=== PATIENT | male | born 1940 | race Caucasian/White ===

== ENCOUNTER → 2016-10-21 | Outpatient (REF) | payer MEDICARE, OTHER ==
[~2016-10-21] MED LIST: /PROM25SU; ACET65TA OR; ALLE25CA; ASPI81TA31 OR; ATEN25TA; ATEN25TA OR; CALC600T10; CALCIUM/VIT D PO; CHONDROITIN PO; CO Q; FOLI1TAB; FOSI10TA2; FOSI10TA2 OR; GLUCOSAMINE PO; MAGN500T2; PERC5TAB8 OR; PERC7.5T8; PERC7.5T8 OR; VYTO10TA5; [UNRECOGNIZED DRUG - OTHER]; [UNRECOGNIZED DRUG - OTHER] PO; [UNRECOGNIZED DRUG - REMARK] PO; saw palmetto; vitamin d
[2016-10-21 17:30] LABS: BASO # 0.1 K/mm3 (0.0-0.2); BASO % 1.1 % (0.0-1.0); EOS # 0.4 K/mm3 (0.0-0.50); EOS % 5.1 % (0.0-3.0); LARGE UNSTAINED CELL # 0.2 K/mm3 (0.0-0.4); LARGE UNSTAINED CELL % 3.2 % (0.0-4.0); LYMPH # 2.3 K/mm3 (1.5-4.5); LYMPH % 27.4 % (24.0-44.0); MEAN CORPUSCULAR HEMOGLOBIN 28.1 pg (27.0-33.0); MEAN CORPUSCULAR HGB CONC 30.8 g/dl (32.0-36.5); MONO # 0.6 K/mm3 (0.0-0.8); MONO % 7.9 % (0.0-5.0); NEUTROPHILS # 4.2 K/mm3 (1.8-7.7); NEUTROPHILS % 55.3 % (36.0-66.0); PLATELET COUNT, AUTOMATED 217 k/mm3 (150-450); RED CELL DISTRIBUTION WIDTH 14.8 % (11.5-14.5); WHITE BLOOD COUNT 7.5 K/mm3 (4.0-10.0)
[2016-10-21 17:39] LABS: ALBUMIN 3.5 GM/DL (3.2-5.2); ALBUMIN/GLOBULIN RATIO 1.03 (1.00-1.93); BILIRUBIN,DIRECT 0.1 MG/DL (0.0-0.2); BILIRUBIN,TOTAL 0.5 MG/DL (0.2-1.0); TOTAL PROTEIN 6.9 GM/DL (6.4-8.2)
== END ==
LOC: M LABDRAWC 16:17
PROVIDERS: ATTEND Internal Medicine Gastroenterology
DX: K51.90 Ulcerative colitis, unspecified, without complications (principal)

== ENCOUNTER → 2016-10-21 | Outpatient (REF) | payer MEDICARE, OTHER ==
[2016-10-21 17:42] LABS: ALBUMIN 3.5 GM/DL (3.2-5.2); ALBUMIN/GLOBULIN RATIO 1.06 (1.00-1.93); ALKALINE PHOSPHATASE 119 U/L (45-117); ALT/SGPT 26 U/L (12-78); ANION GAP 8 MEQ/L (8-16); AST/SGOT 22 U/L (15-37); BILIRUBIN,TOTAL 0.5 MG/DL (0.2-1.0); BLOOD UREA NITROGEN 23 MG/DL (7-18); CALCIUM LEVEL 8.9 MG/DL (8.8-10.2); CARBON DIOXIDE LEVEL 31 MEQ/L (21-32); CHLORIDE LEVEL 105 MEQ/L (98-107); CHOLESTEROL LEVEL 210 MG/DL (<200); CREATININE FOR GFR 1.15 MG/DL (0.70-1.30); GLOMERULAR FILTRATION RATE > 60.0 (>42); GLUCOSE, FASTING 78 MG/DL (83-110); POTASSIUM SERUM 4.7 MEQ/L (3.5-5.1); SODIUM LEVEL 144 MEQ/L (136-145); TOTAL PROTEIN 6.8 GM/DL (6.4-8.2); TRIGLYCERIDES LEVEL 136 MG/DL (<150)
== END ==
LOC: M LABDRAWC 16:18
PROVIDERS: ATTEND Physician Assistant
DX: I11.9 Hypertensive heart disease without heart failure (principal); I25.10 Atherosclerotic heart disease of native coronary artery without angina pectoris; E78.00 Pure hypercholesterolemia, unspecified; K51.90 Ulcerative colitis, unspecified, without complications

== ENCOUNTER → 2017-01-07 | Outpatient (REF) | payer MEDICARE, OTHER ==
[2017-01-07 12:57] LABS: BASO % 0.6 % (0.0-1.0); EOS # 0.4 K/mm3 (0.0-0.50); EOS % 6.6 % (0.0-3.0); LARGE UNSTAINED CELL # 0.2 K/mm3 (0.0-0.4); LARGE UNSTAINED CELL % 2.8 % (0.0-4.0); MEAN CORPUSCULAR HEMOGLOBIN 28.3 pg (27.0-33.0); MEAN CORPUSCULAR HGB CONC 31.7 g/dl (32.0-36.5); MEAN CORPUSCULAR VOLUME 89.2 fl (80.0-96.0); MONO # 0.4 K/mm3 (0.0-0.8); MONO % 6.6 % (0.0-5.0); NEUTROPHILS # 3.8 K/mm3 (1.8-7.7); NEUTROPHILS % 56.4 % (36.0-66.0); PLATELET COUNT, AUTOMATED 256 k/mm3 (150-450); RED CELL DISTRIBUTION WIDTH 13.6 % (11.5-14.5); WHITE BLOOD COUNT 6.7 K/mm3 (4.0-10.0)
[2017-01-07 13:17] LABS: ALBUMIN/GLOBULIN RATIO 0.91 (1.00-1.93); ALKALINE PHOSPHATASE 128 U/L (45-117); ALT/SGPT 31 U/L (12-78); AST/SGOT 23 U/L (15-37); BILIRUBIN,DIRECT < 0.1 MG/DL (0.0-0.2); BILIRUBIN,TOTAL 0.2 MG/DL (0.2-1.0); TOTAL PROTEIN 6.3 GM/DL (6.4-8.2)
== END ==
LOC: M LABDRAW1 11:34 → M LAB REF 11:34
PROVIDERS: ATTEND Internal Medicine Gastroenterology
DX: K51.90 Ulcerative colitis, unspecified, without complications (principal)

== ENCOUNTER → 2017-03-07 | Outpatient (REF) | payer MEDICARE, OTHER ==
[2017-03-07 18:13] LABS: ALBUMIN 3.6 GM/DL (3.2-5.2); ALBUMIN/GLOBULIN RATIO 1.13 (1.00-1.93); ALKALINE PHOSPHATASE 107 U/L (45-117); ALT/SGPT 26 U/L (12-78); AST/SGOT 25 U/L (15-37); BILIRUBIN,DIRECT < 0.1 MG/DL (0.0-0.2); BILIRUBIN,TOTAL 0.5 MG/DL (0.2-1.0); TOTAL PROTEIN 6.8 GM/DL (6.4-8.2)
[2017-03-07 19:05] LABS: BASO % 0.6 % (0.0-1.0); EOS # 0.3 K/mm3 (0.0-0.50); EOS % 5.4 % (0.0-3.0); LARGE UNSTAINED CELL # 0.2 K/mm3 (0.0-0.4); LARGE UNSTAINED CELL % 3.6 % (0.0-4.0); LYMPH # 1.5 K/mm3 (1.5-4.5); LYMPH % 25.4 % (24.0-44.0); MEAN CORPUSCULAR HEMOGLOBIN 29.1 pg (27.0-33.0); MEAN CORPUSCULAR HGB CONC 32.2 g/dl (32.0-36.5); MEAN CORPUSCULAR VOLUME 90.4 fl (80.0-96.0); MONO # 0.5 K/mm3 (0.0-0.8); MONO % 8.4 % (0.0-5.0); NEUTROPHILS # 3.3 K/mm3 (1.8-7.7); NEUTROPHILS % 56.5 % (36.0-66.0); PLATELET COUNT, AUTOMATED 211 k/mm3 (150-450); RED CELL DISTRIBUTION WIDTH 14.7 % (11.5-14.5); WHITE BLOOD COUNT 5.8 K/mm3 (4.0-10.0)
== END ==
LOC: M LABDRAWC 16:29
PROVIDERS: ATTEND Internal Medicine Gastroenterology
DX: K51.90 Ulcerative colitis, unspecified, without complications (principal)

== ENCOUNTER → 2017-08-12 | Outpatient (REF) | payer MEDICARE, OTHER ==
[2017-08-12 13:37] LABS: BASO % 0.5 % (0.0-1.0); EOS # 0.4 10^3/uL (0.0-0.50); EOS % 5.6 % (0.0-3.0); IMMATURE GRANULOCYTE % 0.2 % (0-0); LYMPH # 1.5 10^3/uL (1.5-4.5); LYMPH % 23.9 % (24.0-44.0); MEAN CORPUSCULAR HEMOGLOBIN 27.3 pg (27.0-33.0); MEAN CORPUSCULAR HGB CONC 31.3 g/dl (32.0-36.5); MEAN CORPUSCULAR VOLUME 87.4 fl (80.0-96.0); MONO # 0.8 10^3/uL (0.0-0.8); MONO % 12.7 % (0.0-5.0); NEUTROPHILS # 3.7 10^3/uL (1.8-7.7); NEUTROPHILS % 57.1 % (36.0-66.0); PLATELET COUNT, AUTOMATED 212 10^3/uL (150-450); RED CELL DISTRIBUTION WIDTH 15.7 % (11.5-14.5); WHITE BLOOD COUNT 6.4 10^3/uL (4.0-10.0)
[2017-08-12 13:52] LABS: ALBUMIN 3.2 GM/DL (3.2-5.2); ALBUMIN/GLOBULIN RATIO 1.03 (1.00-1.93); BILIRUBIN,DIRECT 0.1 MG/DL (0.0-0.2); BILIRUBIN,TOTAL 0.5 MG/DL (0.2-1.0); TOTAL PROTEIN 6.3 GM/DL (6.4-8.2)
== END ==
LOC: M LABDRAWC 12:41
PROVIDERS: ATTEND Internal Medicine Gastroenterology
DX: K51.90 Ulcerative colitis, unspecified, without complications (principal)

== ENCOUNTER → 2017-10-13 | Outpatient (REF) | payer MEDICARE, OTHER ==
[2017-10-13 12:37] LABS: BASO % 0.7 % (0.0-1.0); EOS # 0.4 10^3/uL (0.0-0.50); HEMATOCRIT 46.3 % (42.0-52.0); HEMOGLOBIN 14.7 g/dl (14.0-18.0); IMMATURE GRANULOCYTE % 0.2 % (0-0); LYMPH # 1.8 10^3/uL (1.5-4.5); LYMPH % 29.3 % (24.0-44.0); MEAN CORPUSCULAR HEMOGLOBIN 27.8 pg (27.0-33.0); MEAN CORPUSCULAR HGB CONC 31.7 g/dl (32.0-36.5); MEAN CORPUSCULAR VOLUME 87.5 fl (80.0-96.0); MONO # 0.8 10^3/uL (0.0-0.8); MONO % 13.2 % (0.0-5.0); NEUTROPHILS % 49.6 % (36.0-66.0); PLATELET COUNT, AUTOMATED 202 10^3/uL (150-450); RED BLOOD COUNT 5.29 10^6/uL (4.30-6.10); RED CELL DISTRIBUTION WIDTH 15.3 % (11.5-14.5)
[2017-10-13 14:14] LABS: ALBUMIN 3.4 GM/DL (3.2-5.2); ALKALINE PHOSPHATASE 109 U/L (45-117); ALT/SGPT 26 U/L (12-78); AST/SGOT 29 U/L (7-37); BILIRUBIN,DIRECT 0.1 MG/DL (0.0-0.2); BILIRUBIN,TOTAL 0.4 MG/DL (0.2-1.0); TOTAL PROTEIN 6.5 GM/DL (6.4-8.2)
== END ==
LOC: M LABDRAWC 11:31
DX: K51.90 Ulcerative colitis, unspecified, without complications (principal)
CPT/HCPCS: 80076

== ENCOUNTER → 2018-01-26 | Outpatient (REF) | payer MEDICARE, OTHER ==
[2018-01-27 11:59] LABS: BASO % 0.7 % (0.0-1.0); EOS # 0.3 10^3/uL (0.0-0.50); EOS % 4.2 % (0.0-3.0); HEMATOCRIT 43.2 % (42.0-52.0); HEMOGLOBIN 13.8 g/dl (13.5-17.5); IMMATURE GRANULOCYTE % 0.2 % (0-3.0); LYMPH # 1.5 10^3/uL (1.5-4.5); LYMPH % 25.3 % (24.0-44.0); MEAN CORPUSCULAR HEMOGLOBIN 28.1 pg (27.0-33.0); MEAN CORPUSCULAR HGB CONC 31.9 g/dl (32.0-36.5); MONO # 0.7 10^3/uL (0.0-0.8); MONO % 12.3 % (0.0-5.0); NEUTROPHILS # 3.4 10^3/uL (1.8-7.7); NEUTROPHILS % 57.3 % (36.0-66.0); PLATELET COUNT, AUTOMATED 189 10^3/uL (150-450); RED BLOOD COUNT 4.91 10^6/uL (4.30-6.10); RED CELL DISTRIBUTION WIDTH 15.3 % (11.5-14.5); WHITE BLOOD COUNT 5.9 10^3/uL (4.0-10.0)
[2018-01-27 12:27] LABS: ALBUMIN 3.3 GM/DL (3.2-5.2); ALBUMIN/GLOBULIN RATIO 1.06 (1.00-1.93); ALKALINE PHOSPHATASE 94 U/L (45-117); ALT/SGPT 27 U/L (12-78); AST/SGOT 26 U/L (7-37); BILIRUBIN,DIRECT < 0.1 MG/DL (0.0-0.2); BILIRUBIN,TOTAL 0.3 MG/DL (0.2-1.0); TOTAL PROTEIN 6.4 GM/DL (6.4-8.2)
== END ==
LOC: M LABDRAWC 11:29
DX: K51.90 Ulcerative colitis, unspecified, without complications (principal)
CPT/HCPCS: 80076

== ENCOUNTER → 2018-06-27 | Outpatient (REF) | payer MEDICARE, OTHER ==
[2018-06-27 19:08] LABS: HEMATOCRIT 47.2 % (42.0-52.0); HEMOGLOBIN 14.7 g/dl (13.5-17.5); MEAN CORPUSCULAR HEMOGLOBIN 28.1 pg (27.0-33.0); MEAN CORPUSCULAR HGB CONC 31.1 g/dl (32.0-36.5); MEAN CORPUSCULAR VOLUME 90.1 fl (80.0-96.0); PLATELET COUNT, AUTOMATED 189 10^3/uL (150-450); RED BLOOD COUNT 5.24 10^6/uL (4.30-6.10); RED CELL DISTRIBUTION WIDTH 14.7 % (11.5-14.5); WHITE BLOOD COUNT 5.8 10^3/uL (4.0-10.0)
[2018-06-27 19:33] LABS: ALBUMIN 3.6 GM/DL (3.2-5.2); ALBUMIN/GLOBULIN RATIO 1.13 (1.00-1.93); ALKALINE PHOSPHATASE 104 U/L (45-117); ALT/SGPT 30 U/L (12-78); ANION GAP 7 MEQ/L (8-16); AST/SGOT 29 U/L (7-37); BILIRUBIN,TOTAL 0.5 MG/DL (0.2-1.0); BLOOD UREA NITROGEN 20 MG/DL (7-18); CALCIUM LEVEL 8.9 MG/DL (8.8-10.2); CARBON DIOXIDE LEVEL 30 MEQ/L (21-32); CHLORIDE LEVEL 107 MEQ/L (98-107); CHOLESTEROL LEVEL 188 MG/DL (<200); CHOLESTEROL RISK RATIO 3.547 (<5); CREATININE FOR GFR 0.86 MG/DL (0.70-1.30); GLOMERULAR FILTRATION RATE > 60.0 (>35); GLUCOSE, FASTING 85 MG/DL (70-100); HDL CHOLESTEROL 53 MG/DL (>40); LDL CHOLESTEROL 106 MG/DL (<100); NON-HDL-C 135 MG/DL; POTASSIUM SERUM 4.8 MEQ/L (3.5-5.1); SODIUM LEVEL 144 MEQ/L (136-145); TOTAL PROTEIN 6.8 GM/DL (6.4-8.2); TRIGLYCERIDES LEVEL 143 MG/DL (<150)
== END ==
LOC: M LABDRAWC 18:03
DX: I25.10 Atherosclerotic heart disease of native coronary artery without angina pectoris (principal); I11.9 Hypertensive heart disease without heart failure; E78.00 Pure hypercholesterolemia, unspecified
CPT/HCPCS: 80053

== ENCOUNTER 2019-03-25 13:05 | Observation (INO) | payer MEDICARE, OTHER ==
[~2019-03-25] VITALS: Ht 167.6 cm; Wt 72.5 kg
[2019-03-25] MEDS ORDERED: AZAT50TA2 PO (13:40)
[2019-03-25] MEDS ORDERED: LISI-1046 PO (13:40)
[2019-03-25] MEDS ORDERED: SIMV40TA2 PO (13:40)
--- NOTE | 2019-03-25 13:54 | REP ---
CT of the brain without IV contrast: There are no comparisons. There is no hemorrhage, edema, mass effect or midline shift. Ventricles and sulci are mildly dilated compatible with diffuse volume loss. There are lucencies in the subcortical/periventricular white matter compatible with chronic microvascular ischemia. The visualized paranasal sinuses and mastoid air cells are clear. Impression: There is no hemorrhage, acute infarct or mass. There are findings compatible with chronic microvascular ischemia and diffuse volume loss. Electronically Signed by Giovany Hill MD 03/25/2019 01:46 P
[2019-03-25 13:58] LABS: BASO % 0.7 % (0.0-1.0); EOS # 0.4 10^3/uL (0.0-0.50); EOS % 7.2 % (0.0-3.0); HEMATOCRIT 41.7 % (42.0-52.0); HEMOGLOBIN 13.2 g/dl (13.5-17.5); LYMPH # 1.4 10^3/uL (1.5-4.5); LYMPH % 25.3 % (24.0-44.0); MEAN CORPUSCULAR HGB CONC 31.7 g/dl (32.0-36.5); MEAN CORPUSCULAR VOLUME 88.3 fl (80.0-96.0); MONO # 0.8 10^3/uL (0.0-0.8); MONO % 13.4 % (0.0-5.0); NEUTROPHILS % 53.2 % (36.0-66.0); PLATELET COUNT, AUTOMATED 205 10^3/uL (150-450); RED BLOOD COUNT 4.72 10^6/uL (4.30-6.10); WHITE BLOOD COUNT 5.7 10^3/uL (4.0-10.0)
[2019-03-25 14:07] LABS: INR 1.03; PROTHROMBIN TIME 13.2 SECONDS (11.8-14.0)
[2019-03-25 14:08] LABS: PARTIAL THROMBOPLASTIN TIME 27.5 SECONDS (25.0-38.4)
--- NOTE | 2019-03-25 14:26 | REP ---
Portable chest, 01:43 p.m., single AP view with the patient sitting: Comparison is 07/20/2010. The lung honeycutt are clear. The cardiac size is upper normal. There are sternotomy wires and mediastinal surgical clips, unchanged. There is an endovascular stent superimposed over the cardiac silhouette on the right, unchanged. The petr and mediastinum are unremarkable. There are bilateral shoulder arthroplasties. Impression: There are no acute cardiopulmonary findings. Electronically Signed by Giovany Hill MD 03/25/2019 02:18 P
[2019-03-25 14:34] LABS: ALBUMIN 2.9 GM/DL (3.2-5.2); ALT/SGPT 26 U/L (12-78); BILIRUBIN,DIRECT 0.1 MG/DL (0.0-0.2); BILIRUBIN,TOTAL 0.3 MG/DL (0.2-1.0); BLOOD UREA NITROGEN 15 MG/DL (7-18); C REACTIVE PROTEIN QUANTITATIV 0.53 MG/DL (0.00-0.30); CALCIUM LEVEL 8.6 MG/DL (8.8-10.2); CARBON DIOXIDE LEVEL 29 MEQ/L (21-32); CHLORIDE LEVEL 109 MEQ/L (98-107); CK-MB VALUE MASS 3.8 NG/ML (<3.6); CPK CREATINE PHOSPHOKINASE 82 U/L (39-308); CREATININE FOR GFR 0.87 MG/DL (0.70-1.30); GLOMERULAR FILTRATION RATE > 60.0 (>35); GLUCOSE, FASTING 88 MG/DL (70-100); MB/CK RELATIVE INDEX 4.63 (< OR =4); NT-PRO BNP 610 PG/ML (<450); POTASSIUM SERUM 4.6 MEQ/L (3.5-5.1); SODIUM LEVEL 142 MEQ/L (136-145); TOTAL PROTEIN 6.2 GM/DL (6.4-8.2); TROPONIN I 0.02 NG/ML (< 0.10)
[2019-03-25] MEDS ORDERED: ASPIRIN 325 MG TAB PO ONE (15:15)
[2019-03-25] MEDS ORDERED: ZOCO80TA PO (15:32)
[2019-03-25] MEDS ORDERED: ATEN25TA PO (15:32)
[2019-03-25] MEDS ORDERED: BRONCHW PO (15:32)
[2019-03-25] MEDS ORDERED: VOLT1GEL15 TOP (15:32)
[2019-03-25] MEDS ORDERED: RESV1TAB PO (15:32)
[2019-03-25] MEDS ORDERED: FERR1TAB8 PO (15:32)
[2019-03-25] MEDS ORDERED: ENOXAPARIN 40 MG/0.4 ML SYRINGE (J1650) SC ONE (17:00)
--- NOTE | 2019-03-25 18:46 | HPEPDOC ---
General Date of Admission Mar 25, 2019 at 16:43 Date of Service: Mar 25, 2019 Chief Complaint The patient is a 78-year-old male admitted with a reason for visit of Bradycardia Tia. Source: Patient, Family Exam Limitations: No limitations Timing/Duration: Changing over time, This morning Associated Symptoms: Denies Symptoms History of Present Illness This is an 78-year-old male who had onset of neurologic changes. They started this morning. Initially, note was made of a change to his voice. His did n otice that he was stumbling and had slurred speech. He then slept for an extended period of about 14 hours. This was highly unusual for him and so she called paramedics to the home. She states the paramedics noted facial droop, but she did not. Upon arrival to the emergency room. Most symptoms had resolved. Of particular interest, the patient had a fall 5 weeks ago sustained a concussion. He had waxing and waning confusion, dizziness, balance issues and difficulty keeping track of time. He's not had any fever or headache. Home Medications Scheduled Atenolol (Atenolol) 25 Mg Tablet, 12.5 MG PO QHS, (Reported) Azathioprine (Azathioprine) 50 Mg Tablet, 50 MG PO QHS, (Reported) Ferrous Sulfate (Ferrous Sulfate) 325 Mg Tablet, 325 MG PO DAILY, (Reported) Lisinopril (Lisinopril) 2.5 Mg Tablet, 2.5 MG PO QHS, (Reported) Multivitamin (Chewable-Nelida) 1 Each Tab.chew, 1 CHW PO DAILY, (Reported) Resveratrol/Grape Skin Extract (Resveratrol 100 mg Tablet) 1 Each Tablet, 1 TAB PO DAILY, (Reported) Simvastatin (Zocor) 80 Mg Tablet, 40 MG PO QHS, (Reported) Scheduled PRN Diclofenac Sodium (Voltaren) 100 Gm Gel..gram., 1 APLCT TOP for SHOULDER PAIN, (Reported) Allergies Coded Allergies: morphine (Verified Adverse Reaction, Unknown, confused, 03/25/19) Past Medical History Medical History Past medical history is remarkable for hypertension, hypercholesterolemia, ulcerative colitis that has been stable for some time, coronary artery disease with coronary artery bypass graft in 1996, macular degeneration, osteoarthritis Surgical History Surgical history includes the aforementioned coronary artery bypass graft surgery with 4 vessels in 1996, bilateral shoulder replacement, bunion surgery Family History Significant Family History: Heart disease, Hyperlipidemia Social History * Smoker: non-smoker, secondhand, other Alcohol: rarely Drugs: denies Recent Travel/Sick Contacts: Denies: Recent travel, Recent sick contacts Psychosocial History: No pertinent psych hx The patient is retired. 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 We have discussed his CODE STATUS. He has a MOLST form at home. His is his medical power of collections attorney. He is to be DNR/DNI. He receives most of his medical care [facility]. A-FIB/CHADSVASC A-FIB History Current/History of A-Fib/PAF?: No Current PO Anticoag Therapy: No Review of Systems Constitutional: Denies: Chills, Fever, Malaise, Night Sweats, Weakness, Fatigue, Weight Loss, Lethargy, Other Eyes: Reports: Redness; Denies: Pain, Vision change, Conjunctivae inflammation, Eyelid inflammation, Other ENT: Denies: Head Aches, Ear Pain, Dysphagia, Sinus Congestion, Post Nasal Drip, Sore Throat, Epistaxis, Other Symptoms Skin: Denies: Rash, Lesions, Jaundice, Bruising, Itching, Dry, Breakdown, Nail Changes, Other Pulmonary: Denies: Dyspnea, Cough, Pleuritic Chest Pain, Other Symptoms Cardiovascular: Denies: Chest Pain, Palpitations, Orthopnea, Paroxysmal Noc. Dyspnea, Edema, Lt Headedness, Other Symptoms Gastrointestinal: Denies: Nausea, Vomiting, Abdominal Pain, Diarrhea, Constip ation, Melena, Hematochezia, Other Symptoms Genitourinary: Reports: Other Symptoms (patient reports complaint of urinary urgency) Hematologic: Denies: Bruising, Bleeding Excessively, Petecchia, Purpura, Enlarged Lymph Nodes, Other Hematologic Endocrine: Denies: Polydipsia, Polyphagia, Polyuria, Heat Intolerance, Cold Intolerance, Other Endocrine Sx Musculoskeletal: Reports: Neck Pain Neurological: Reports: Change in speech, Other Symptoms (he otherwise denies any muscular weakness); Denies: Weakness, Numbness, Incoordination, Confusion, Seizures Psych: Reports: Mood Normal; Denies: Anxiety, Depression, Memory Issues, Thoughts of Self Harm, Anger, Thoughts of Harming Other, Other Psych Other systems Review of 10 systems is otherwise negative except as stated in the brief presentation Physical Examination General Exam: Positive: Alert, Cooperative, No Acute Distress Eye Exam: Positive: PERRLA, Other Eye Symptoms (remarkable left scleral injection) ENT Exam: Positive: Atraumatic, Mucous membr. moist/pink, Pharynx Normal, Tongue Midline, Nares Patent Neck Exam: Positive: Supple Chest Exam: Positive: Clear to auscultation, Normal air movement Heart Exam: Positive: Bradycardic (heart rate is 50), Regular Rhythm, Normal S1, Normal S2 Abdomen Exam: Positive: Normal bowel sounds, Soft; Negative: BS Hyperactive, BS Hypoactive, Tenderness, Hepatospenomegaly, Mass, Hernia, Other Extremity Exam: Positive: Normal pulses; Negative: Clubbing, Cyanosis, Edema, Tenderness, Swelling, Other Skin Exam: Positive: Nl turgor and temperature; Negative: Rash, Breakdown, Lesion, Pruritus, Other skin issue Neuro Exam: Positive: Normal Speech, Strength at 5/5 X4 ext, Normal Tone, Sensation Intact, Cranial Nerves 3-12 NL, Reflexes 2+ Psych Exam: Positive: Mood NL, Oriented x 3 Vital Signs Vital Signs Date Time Temp Pulse Resp B/P (MAP) Pulse Ox O2 Delivery O2 Flow Rate FiO2 03/25/19 17:31 54 156/79 (104) 03/25/19 17:01 20 99 Room Air 03/25/19 13:23 97.1 Laboratory Data Labs 24H Laboratory Tests 2 03/25/19 13:46: Immature Granulocyte % (Auto) 0.2, White Blood Count 5.7, Red Blood Count 4.72, Hemoglobin 13.2L, Hematocrit 41.7L, Mean Corpuscular Volume 88.3, Mean Corpuscular Hemoglobin 28.0, Mean Corpuscular Hemoglobin Concent 31.7L, Red Cell Distribution Width 14.6H, Platelet Count 205, Neutrophils (%) (Auto) 53.2, Lymphocytes (%) (Auto) 25.3, Monocytes (%) (Auto) 13.4H, Eosinophils (%) (Auto) 7.2H, Basophils (%) (Auto) 0.7, Neutrophils # (Auto) 3.0, Lymphocytes # (Auto) 1.4L, Monocytes # (Auto) 0.8, Eosinophils # (Auto) 0.4, Basophils # (Auto) 0.0, Nucleated Red Blood Cells % (auto) 0.0, Prothrombin Time 13.2, Prothromb Time International Ratio 1.03, Activated Partial Thromboplast Time 27.5, Anion Gap 4L, Glomerular Filtration Rate > 60.0, Calcium Level 8.6L, Aspartate Amino Transf (AST/SGOT) 25, Alanine Aminotransferase (ALT/SGPT) 26, Alkaline Phosphatase 137H, Total Bilirubin 0.3, Direct Bilirubin 0.1, Total Creatine Kinase 82, Creatine Kinase MB 3.8H, Creatine Kinase MB Relative Index 4.63H, Troponin I 0.02, C-Reactive Protein, Quantitative 0.53H, JJ-Vxw-C-Type Natriuretic Peptide 610H, Total Protein 6.2L, Albumin 2.9L, Albumin/Globulin Ratio 0.88L CBC/BMP Laboratory Tests 03/25/19 13:46 Red Blood Count 4.72, Mean Corpuscular Volume 88.3, Mean Corpuscular Hemoglobin 28.0, Mean Corpuscular Hemoglobin Concent 31.7 L, Red Cell Distribution Width 14.6 H, Neutrophils (%) (Auto) 53.2, Lymphocytes (%) (Auto) 25.3, Monocytes (%) (Auto) 13.4 H, Eosinophils (%) (Auto) 7.2 H, Basophils (%) (Auto) 0.7, Neutr ophils # (Auto) 3.0, Lymphocytes # (Auto) 1.4 L, Monocytes # (Auto) 0.8, Eosinophils # (Auto) 0.4, Basophils # (Auto) 0.0 Problems (1) TIA (transient ischemic attack) Status: Acute Discussed With: Patient, Health Care Proxy Problem Specific Plan: Monitor Clinically, Repeat Labs (we will obtain echoc ardiogram and carotid Dopplers. The patient will also be assessed by occupational and physical therapy and speech services.) (2) Bradycardia Status: Acute Response to Treatment: Stable Problem Specific Plan: Monitor Clinically Plan / VTE VTE Prophylaxis Ordered?: Yes (the patient is appropriate for Lovenox) Plan Diet: Continue Current Activity: Continue Current Therapy: PT, OT, Speech Medications: Other Med: (aspirin and statin to be added to his regimen; atenolo l held due to bradycardia, hydralazine added for blood pressure control) Diagnostics: Ultrasound (carotid Dopplers), TTE Advanced Directives: Do Not Resuscitate (DNR), Do Not Intubate (DNI) (patient has MOLST form at home) JACQUIE MELISSA MD Mar 25, 2019 18:46
[2019-03-25] MEDS: DICLOFENAC EPOLAMINE 1.3 % PATCH TOP SCH (20:11)
[2019-03-25 20:40] VITALS: BP 162/80
[2019-03-25] MEDS ORDERED: LISINOPRIL *2.5 MG* TAB PO SCH (21:00)
[2019-03-25] MEDS ORDERED: SIMVASTATIN 40 MG TAB PO SCH (21:00)
[2019-03-25] MEDS: **hydrALAZINE HCL** 25 MG TAB PO SCH (21:40)
[2019-03-25 23:59] VITALS: BP 146/60
--- NOTE | 2019-03-26 00:44 | REPVR ---
EXAM: US Duplex Bilateral Extracranial Arteries EXAM DATE/TIME: 03/25/2019 11:13 PM CLINICAL HISTORY: 78 years old, male; Altered mental status/memory loss; Other: TIA TECHNIQUE: Imaging protocol: Real-time Duplex ultrasound scan of the Bilateral carotid and vertebral arteries combining foster scale, color Doppler and spectral waveform analysis. COMPARISON: No relevant prior studies available. FINDINGS: Right common carotid artery: Peak systolic velocity in the right CCA is 79 cm/s. Normal waveforms. Mild echogenic plaque in the distal right CCA. Right internal carotid artery: Peak systolic velocity in the right ICA is 86 cm/s. Mild echogenic plaque in the right ICA bulb. Normal waveforms. Right ICA/CCA ratio: Right ICA/CCA ratio is 1.1. Right external carotid artery: No stenosis in the origin. Right vertebral artery: Unremarkable. Antegrade flow Left common carotid artery: Peak systolic velocity in the left CCA is 96 cm/s. Moderate echogenic plaque in the distal left CCA. Normal waveforms. Left internal carotid artery: Peak systolic velocity in the left ICA is 99 cm/s. Normal waveforms. Moderate echogenic plaque in the proximal left ICA. Left ICA/CCA ratio: Left ICA/CCA ratio is 1.0. Left external carotid artery: No stenosis in the origin. Mild echogenic plaque in the proximal left ECA. Left vertebral artery: Unremarkable. Antegrade flow. Other findings: There is occasional sinus arrhythmia. IMPRESSION: 1. Less than 50% stenosis in the left CCA and proximal left ICA. 2. No stenosis in the right CCA and ICA. COMMENT: Carotid Stenosis Reference using SRU criteria: Mild: less than 50% stenosis. ICA PSV is less than 125 cm/second and plaque or intimal thickening is visible. Moderate: 50-69% stenosis. ICA PSV is 125 to 230 cm/second and plaque is visible. Severe: 70-94% stenosis. ICA PSV is more than 230 cm/second and visible plaque and lumen narrowing are seen. Near occlusion: 95-99% stenosis. ICA PSV is variable and significant plaque and luminal narrowing are seen. Occluded: 100% stenosis. No flow identified. Electronically signed by: Jessica Griffin On 03/26/2019 00:44:06 AM
[2019-03-26 04:00] VITALS: BP 130/68
[2019-03-26 05:45] LABS: HEMOGLOBIN 12.5 g/dl (13.5-17.5); MEAN CORPUSCULAR HEMOGLOBIN 27.7 pg (27.0-33.0); MEAN CORPUSCULAR HGB CONC 32.1 g/dl (32.0-36.5); MEAN CORPUSCULAR VOLUME 86.3 fl (80.0-96.0); PLATELET COUNT, AUTOMATED 187 10^3/uL (150-450); RED BLOOD COUNT 4.52 10^6/uL (4.30-6.10)
[2019-03-26 06:17] LABS: BLOOD UREA NITROGEN 17 MG/DL (7-18); CALCIUM LEVEL 8.2 MG/DL (8.8-10.2); CARBON DIOXIDE LEVEL 27 MEQ/L (21-32); CHLORIDE LEVEL 109 MEQ/L (98-107); CHOLESTEROL LEVEL 149 MG/DL (< 200); GLOMERULAR FILTRATION RATE > 60.0 (>35); GLUCOSE, FASTING 82 MG/DL (70-100); SODIUM LEVEL 142 MEQ/L (136-145); TROPONIN I 0.03 NG/ML (< 0.10)
--- NOTE | 2019-03-26 06:56 | ECGEPIP ---
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
[2019-03-26 08:00] VITALS: BP 136/63
[2019-03-26] MEDS: **hydrALAZINE HCL** 25 MG TAB PO SCH ×2 (08:44→16:32)
[2019-03-26] MEDS: DICLOFENAC EPOLAMINE 1.3 % PATCH TOP SCH (08:44)
[2019-03-26] MEDS ORDERED: FERROUS SULFATE 325MG TAB PO SCH (09:00)
[2019-03-26] MEDS ORDERED: SLF 3 ML SYR IV PRN (11:00)
[2019-03-26 12:00] VITALS: BP 132/67
[2019-03-26] MEDS ORDERED: SLF 3 ML SYR IV SCH (14:00)
[2019-03-26] MEDS ORDERED: HYDR25TA PO (15:56)
[2019-03-26] MEDS ORDERED: ECOT81TA5 PO (15:59)
[2019-03-26 16:32] VITALS: BP 132/68
--- NOTE | 2019-03-26 18:04 | DS.PDOC ---
Discharge Summary General Date of Admission Mar 25, 2019 at 16:43 Date of Discharge 03/26/2019 Discharge Summary PROCEDURES PERFORMED DURING STAY: Echocardiogram, report pending. ADMITTING DIAGNOSES: 1. TIA. DISCHARGE DIAGNOSES: 1. TIA, essential hypertension, dyslipidemia, coronary artery disease, macular degeneration, osteoarthritis, ulcerative colitis-essentially in remission. COMPLICATIONS/CHIEF COMPLAINT: Bradycardia Tia. HISTORY OF PRESENT ILLNESS/HOSPITAL COURSE: This is a 78-year-old male who had onset of neurologic changes. The morning of admission. Note was initially made of a change to his voice quality. He then developed slurred speech and stumbling. Lastly, he had a period of extended somnolence for about 14 hours. Paramedics were called to the home who noted facial droop. Patient was then brought to the emergency room. By the time he arrived all of his symptoms had resolved. The patient was admitted to telemetry. Patient was also noted to have bradycardia upon admission. As he was known to be on atenolol this was held. Bradycardia was not captured on EKG. At lowest rate. He was 37 while sleeping. He otherwise remained stable at 65. The patient did not have any elevated troponins consistent with an acute cardiac event. He did not have any chest pain or shortness of breath. Chest x-ray was unremarkable. Head CT did not show any focal areas of infarct, although note was made of considerable atrophy. Carotid Dopplers were unremarkable for stenosis. The patient was evaluated by physical, occupational and speech therapy services. He did not have any deficits and did not require any services. 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 DISCHARGE MEDICATIONS: Please see below. ALLERGIES: Please see below. PHYSICAL EXAMINATION ON DISCHARGE: VITAL SIGNS: Please see below. ENT: Moist mucous membranes, tongue midline, poor dentition, neck supple. Respiratory: Clear to auscultation, normal air movement. Cardiovascular: Regular rhythm, no appreciable murmur. Abdomen: Soft, nondistended, nontender, normal bowel sounds, no central obesity. Extremities: No peripheral edema, pedal pulses palpable. Neuro: Cranial nerves II through XII are grossly intact to function, strength was normal throughout, patient had no focal neuromotor or sensory deficits, he was independently ambulatory LABORATORY DATA: Please see below. IMAGING: PROGNOSIS: ACTIVITY: As tolerated. DIET: Heart healthy DISCHARGE PLAN: The patient was stable for discharge to home. He has a scheduled follow-up appointment with his cardiology group, Dr. Dover et al., We have discontinued his atenolol for now. His other home medications are unchanged. We have added aspirin to his regimen; he is already on a statin. DISPOSITION: DISCHARGE CONDITION: Stable. TIME SPENT ON DISCHARGE: Greater than 35 minutes. Vital Signs/I&Os Vital Signs Date Time Temp Pulse Resp B/P (MAP) Pulse Ox O2 Delivery O2 Flow Rate FiO2 03/26/19 16:32 132/68 03/26/19 12:00 96.9 64 18 96 03/25/19 19:30 Room Air I&O- Last 24 Hours up to 6 AM 03/26/19 06:00 Intake Total 0 ml Output Total 725 ml Balance -725 ml Laboratory Data Labs 24H Laboratory Tests 2 03/26/19 05:21: Nucleated Red Blood Cells % (auto) 0.0, Anion Gap 6L, Glomerular Filtration Rate > 60.0, Blood Urea Nitrogen 17, Creatinine 0.90, Sodium Level 142, Potassium Level 4.0, Chloride Level 109H, Carbon Dioxide Level 27, Calcium Level 8.2L, Troponin I 0.03#, Cholesterol Level 149 CBC/BMP Laboratory Tests 03/26/19 05:21 Red Blood Count 4.52, Mean Corpuscular Volume 86.3, Mean Corpuscular Hemoglobin 27.7, Mean Corpuscular Hemoglobin Concent 32.1, Red Cell Distribution Width 14.4, Calcium Level 8.2 L Discharge Medications Scheduled Aspirin (Ecotrin) 81 Mg Tablet.dr, 81 MG PO DAILY for pain Azathioprine (Azathioprine) 50 Mg Tablet, 50 MG PO QHS, (Reported) Ferrous Sulfate (Ferrous Sulfate) 325 Mg Tablet, 325 MG PO DAILY, (Reported) Hydralazine HCl (Hydralazine HCl) 25 Mg Tablet, 25 MG PO TID Lisinopril (Lisinopril) 2.5 Mg Tablet, 2.5 MG PO QHS, (Reported) Multivitamin (Chewable-Nelida) 1 Each Tab.chew, 1 CHW PO DAILY, (Reported) Resveratrol/Grape Skin Extract (Resveratrol 100 mg Tablet) 1 Each Tablet, 1 TAB PO DAILY, (Reported) Simvastatin (Zocor) 80 Mg Tablet, 40 MG PO QHS, (Reported) Scheduled PRN Diclofenac Sodium (Voltaren) 100 Gm Gel..gram., 1 APLCT TOP for SHOULDER PAIN, (Reported) Allergies Coded Allergies: morphine (Verified Adverse Reaction, Unknown, confused, 03/25/19) JACQUIE MELISSA MD Mar 26, 2019 18:04
--- NOTE | 2019-03-26 20:59 | ECHO ---
DATE OF PROCEDURE: 03/26/2019 REFERRING PHYSICIAN: Dr. Donna Mike INDICATION: Transient cerebral ischemia unspecified. HEIGHT: 168 cm WEIGHT: 73 kg 2D MEASUREMENTS: Aortic root: 4.0 cm Left atrium: 4.2 cm Left atrial volume index: 28 Left ventricle diastole: 5.4 cm Ventricular septum: 1.15 cm Posterior wall: 0.96 cm DOPPLER MEASUREMENTS: Mild aortic regurgitation. No aortic stenosis. Aortic valve velocity: 90.2 cm/s Aortic valve VTI: 20.9 cm Mild mitral regurgitation. Mitral E velocity: 37.0 cm/s Mitral A velocity: 80.0 cm/s Very mild tricuspid regurgitation. Estimated right ventricle systolic pressure: 19-24 mmHg assuming a right pressure of 5-10 mmHg. Mild pulmonic regurgitation. Pulmonary artery systolic pressure: 28 mmHg MITRAL ANNULAR TISSUE DOPPLER: E prime lateral: 3.8 cm/s E prime septal: 3.3 cm/s DESCRIPTION: Rhythm was sinus. Image quality was adequate. This was a 2D, M-mode, color flow Doppler and pulse wave Doppler examination and included mitral annular tissue Doppler. CONCLUSIONS: 1. Normal left ventricle internal dimensions and wall thickness. Akinesis of the basal and mid inferolateral segments, and the basal inferior segment. Moderate hypokinesis of the mid inferior segment. Normal regional left ventricular (LV) wall motion and wall thickening elsewhere. Mild reduction in overall LV systolic function. Left ventricular ejection fraction (LVEF) 45% by visual estimate. Grade 1 LV diastolic dysfunction (impaired relaxation filling pattern). 2. Normal right ventricle size and systolic function. Normal estimated right ventricle systolic pressure and pulmonary artery systolic pressure. 3. Mild dilatation of the aortic root at the level of the sinuses of Valsalva. 4. Mild aortic valve sclerosis of a 3-cusp aortic valve. Mild aortic regurgitation. 5. Mild mitral annular calcification with mild mitral regurgitation. 6. No pericardial effusion. MTDD
[2019-03-27 14:08] LABS: Lyme Disease IgG/IgM Antibodie <0.91 ISR (0.00-0.90); Lyme Disease IgM Ab Quantitati <0.80 index (0.00-0.79)
== END 2019-03-26 18:08 | disposition home or self-care (01) ==
LOC: EDBD 13:05 → M ED 13:05 → M ED INP 16:43 → M PCU 20:40
PROVIDERS: ADMIT Internal Medicine; ATTEND Internal Medicine
DX: G45.9 Transient cerebral ischemic attack, unspecified (principal); R00.1 Bradycardia, unspecified; I10 Essential (primary) hypertension; E78.5 Hyperlipidemia, unspecified; I25.10 Atherosclerotic heart disease of native coronary artery without angina pectoris; H35.30 Unspecified macular degeneration; K51.90 Ulcerative colitis, unspecified, without complications; Z95.1 Presence of aortocoronary bypass graft; Z79.82 Long term (current) use of aspirin; Z88.5 Allergy status to narcotic agent; Z79.899 Other long term (current) drug therapy
CPT/HCPCS: 36415; 70450; 71045; 80048; 80076; 82465; 82550; 82553; 83880; 84484; 85025; 85027; 85610; 85730; 86140; 86617; 86850; 86900; 86901; 93005; 93041; 93306; 93880; 94760; 96125; 96372; 97161; 97165; 99285; G0378; J1650

== ENCOUNTER → 2019-05-29 | Outpatient (REF) | payer MEDICARE, OTHER ==
[~2019-05-29] MED LIST changes: +ATEN25TA PO; +AZAT50TA2 PO; +BRONCHW PO; +ECOT81TA5 PO; +FERR1TAB8 PO; +HYDR25TA PO; +LISI-1046 PO; +RESV1TAB PO; +SIMV40TA2 PO; +VOLT1GEL15 TOP; +ZOCO80TA PO
[2019-05-29 16:48] LABS: BASO % 0.5 % (0.0-1.0); EOS # 0.3 10^3/uL (0.0-0.50); EOS % 4.9 % (0.0-3.0); HEMATOCRIT 42.1 % (42.0-52.0); HEMOGLOBIN 13.5 g/dl (13.5-17.5); LYMPH # 1.6 10^3/uL (1.5-4.5); LYMPH % 28.3 % (24.0-44.0); MEAN CORPUSCULAR HEMOGLOBIN 27.6 pg (27.0-33.0); MEAN CORPUSCULAR HGB CONC 32.1 g/dl (32.0-36.5); MEAN CORPUSCULAR VOLUME 85.9 fl (80.0-96.0); MONO # 0.8 10^3/uL (0.0-0.8); MONO % 13.2 % (0.0-5.0); NEUTROPHILS % 52.9 % (36.0-66.0); PLATELET COUNT, AUTOMATED 215 10^3/uL (150-450); WHITE BLOOD COUNT 5.7 10^3/uL (4.0-10.0)
[2019-05-29 16:51] LABS: ALBUMIN 3.1 GM/DL (3.2-5.2); ALT/SGPT 27 U/L (12-78); BILIRUBIN,TOTAL 0.6 MG/DL (0.2-1.0); BLOOD UREA NITROGEN 17 MG/DL (7-18); CALCIUM LEVEL 8.6 MG/DL (8.8-10.2); CARBON DIOXIDE LEVEL 27 MEQ/L (21-32); CHLORIDE LEVEL 108 MEQ/L (98-107); CHOLESTEROL LEVEL 184 MG/DL (<200); CHOLESTEROL RISK RATIO 3.345 (<5); CREATININE FOR GFR 0.95 MG/DL (0.70-1.30); GLOMERULAR FILTRATION RATE > 60.0 (>35); GLUCOSE, FASTING 87 MG/DL (70-100); HDL CHOLESTEROL 55 MG/DL (>40); LDL CHOLESTEROL 109 MG/DL (<100); NON-HDL-C 129 MG/DL; POTASSIUM SERUM 4.3 MEQ/L (3.5-5.1); SODIUM LEVEL 141 MEQ/L (136-145); TOTAL PROTEIN 6.1 GM/DL (6.4-8.2); TRIGLYCERIDES LEVEL 98 MG/DL (<150)
== END ==
LOC: M LAB REF 15:59 → M LABDRAWC 15:59
PROVIDERS: ATTEND Family Medicine
DX: Z00.00 Encounter for general adult medical examination without abnormal findings (principal); S16.1XXS Strain of muscle, fascia and tendon at neck level, sequela; E78.49 Other hyperlipidemia; F07.81 Postconcussional syndrome; K50.90 Crohn's disease, unspecified, without complications; G45.9 Transient cerebral ischemic attack, unspecified

== ENCOUNTER → 2020-04-09 | Outpatient (REF) | payer MEDICARE, OTHER ==
[~2020-04-09] MED LIST changes: -LISI-1046 PO; +LISI2.5T2 PO; -SIMV40TA2 PO; +SIMV40TA20 PO
[2020-04-10 13:40] LABS: CALCIUM LEVEL 8.4 MG/DL (8.8-10.2); CREATININE FOR GFR 1.39 MG/DL (0.70-1.30); GLOMERULAR FILTRATION RATE 52.2 (>35); MAGNESIUM LEVEL 2.4 MG/DL (1.8-2.4); POTASSIUM SERUM 4.5 MEQ/L (3.5-5.1)
== END ==
LOC: M LABDRAWC 11:20
PROVIDERS: ATTEND Physician Assistant
DX: I50.9 Heart failure, unspecified (principal)

== ENCOUNTER → 2020-04-22 | Outpatient (REF) | payer MEDICARE, OTHER ==
[2020-04-23 12:49] LABS: CALCIUM LEVEL 8.4 MG/DL (8.8-10.2); CREATININE FOR GFR 1.31 MG/DL (0.70-1.30); GLOMERULAR FILTRATION RATE 55.9 (>35); MAGNESIUM LEVEL 2.4 MG/DL (1.8-2.4); POTASSIUM SERUM 4.5 MEQ/L (3.5-5.1)
== END ==
LOC: M LABDRAWC 11:34
PROVIDERS: ATTEND Physician Assistant
DX: I50.9 Heart failure, unspecified (principal)

== ENCOUNTER → 2020-06-25 | Outpatient (REF) | payer MEDICARE, OTHER ==
[2020-06-26 16:32] LABS: CALCIUM LEVEL 8.4 MG/DL (8.8-10.2); CREATININE FOR GFR 1.56 MG/DL (0.70-1.30); GLOMERULAR FILTRATION RATE 45.6 (>35); MAGNESIUM LEVEL 2.3 MG/DL (1.8-2.4); POTASSIUM SERUM 4.4 MEQ/L (3.5-5.1)
== END ==
LOC: M LABDRAWC 15:57
PROVIDERS: ATTEND Physician Assistant
DX: I50.42 Chronic combined systolic (congestive) and diastolic (congestive) heart failure (principal)